=== PATIENT | male | born 1985 | race Caucasian/White ===

== ENCOUNTER 2018-06-29 18:58 | Emergency (ER) | payer OTHER ==
[~2018-06-29] VITALS: Ht 167.6 cm; Wt 52.0 kg
[2018-06-29 19:18] VITALS: Ht 167.6 cm; Wt 52.0 kg
--- NOTE | 2018-06-29 21:32 | ERD ---
ER Documentation Chief Complaint Chief Complaint dog bite right lwer leg today HPI This is a 32-year-old male who presents here to emerge department with complaints of right lower extremity dog bite that happened around 6 PM today. Stated is having the city of [place]. 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 Denies headache, head injury, loss of consciousness, dizziness, neck pain, neck stiffness, throat pain, difficulty swallowing, difficulty breathing lying flat, shoulder pain, chest pain, back pain, abdominal pain, nausea, vomiting, constipation, diarrhea, urinary symptoms, loss of bowel and bladder control, falls, difficulty walking due to pain, numbness or tingling sensation, calf pain, recent travel, recent major surgery in the last 3 weeks, calf pain, recent long travel, recent exposure to any illness, recent antibiotic use in the last 3 months, fever, chills, seizures. Past medical history: Denies. Surgical history: Denies. Social: Denies smoking, use of alcoholic beverages, use of illegal drugs. ROS All systems reviewed and are negative except as per history of present illness. Medications Home Meds Active Scripts Ibuprofen* (Motrin*) 600 Mg Tab, 600 MG PO Q6H PRN for PAIN AND OR ELEVATED TEMP, #30 TAB Prov:MARGY LENNON 06/29/18 Amoxicillin/Potassium Clav (Amox-Clav 875-125 mg Tablet) 875-125 mg Tab, 1 TAB PO BID for 10 Days, #20 TAB Prov:MARGY LENNON F 06/29/18 Allergies Allergies: Coded Allergies: No Known Allergy (Unverified , 06/29/18) PMhx/Soc Medical and Surgical Hx: pt denies Medical Hx, pt denies Surgical Hx Hx Alcohol Use: No Hx Substance Use: No Hx Tobacco Use: No Smoking Status: Never smoker Physical Exam Vitals Physical Exam Const: No acute distress Head: Atraumatic Eyes: Normal Conjunctiva. ENT: Normal External Ears, Nose and Mouth. Symmetrical face. Speaks full and clear sentences. Patent airway. Bilateral jaw: No rigidity. No tenderness. No discoloration. Good and full range of motion. No sardonic grin. Neck: Full range of motion. No meningismus. No nuchal rigidity. No signs of meningeal irritation. Resp: Clear to auscultation bilaterally Cardio: Regular rate and rhythm, no murmurs Abd: Soft, non tender, non distended. Normal bowel sounds Skin: No petechiae or rashes Back: No midline or flank tenderness Ext: No cyanosis, or edema. Right lower extremity: 1 puncture wound from the dog bite lateral area of the proximal tibia and fibula measuring approximately 0.2 cm. Right knee: Unremarkable. Has good range of motion of the right ankle. Right ankle: Unremarkable. Has good and full range of motion of the right ankle. Right pedal pulses within normal limits. Capillary refills to right lower extremity is less than 2 seconds. Bilateral hips are stable and unremarkable. Left lower extremity is unremarkable. No neurovascular deficits. Ambulatory with steady gait. Neur: Awake and alert. No neurological deficits. Psych: Normal Mood and Affect Results 24 hrs Current Medications Medications Dose Sig/Linda Start Time Status Last (Trade) Ordered Route PRN Stop Time Admin Dose Reason Admin Diphtheria/ 0.5 ml ONCE ONCE 06/29/18 DC 06/29/18 Tetanus/Acell IM* 22:00 21:45 Pertussis 06/29/18 22:01 (Adacel) 875 mg ONCE ONCE 06/29/18 DC 06/29/18 Amoxicillin/ PO 22:00 21:46 Clavulanate 06/29/18 22:01 Potassium (Augmentin) 1 tab ONCE ONCE 06/29/18 DC Acetaminophen PO 22:00 / 06/29/18 22:21 Hydrocodone Bitart ([place] (5/325)) Ketorolac 30 mg ONCE STAT 06/29/18 DC 06/29/18 Tromethamine IM 22:21 22:28 (Toradol) 06/29/18 22:22 Bacitracin 1 applic ONCE ONCE 06/29/18 DC 06/29/18 (Bacitracin TOP 23:00 22:46 Oint (Ud)) 06/29/18 23:00 Procedures/MDM Diagnostic tests: X-ray of the right knee: Normal x-rays right knee. No radiopaque foreign bodies noted. X-ray of the right tibia and fibula: Normal x-ray of the right tibia and fibula. No radiopaque foreign bodies noted. Treatment: Adacel IM. [place] was discontinued. Toradol IM. Wound cleaning. Augmentin. Dressing was applied by EMT. Re-evaluation: No active bleeding. No neurovascular deficits. Ambulatory with steady gait. Differential diagnosis I have low suspicion for open fracture, retained foreign body, displaced fracture, comminuted fracture, compartment syndrome, deep space infection, sepsis, tetanus. Final diagnosis: Dog bite. Prescription: Augmentin. Motrin. Follow-up with PCP in the next 24-48 hours. Come back here in the emergency department for any new symptoms or any worsening symptoms. All questions and concerns were answered. Patient and family members verbalized understanding and agreed with plan of care. Hemodynamically stable on discharge. Departure Diagnosis: Primary Impression: Bite wound Additional Impression: Dog bite Condition: Stable Additional Instructions: Follow-up with PCP in the next 24-48 hours. Come back here in the emergency department for any new symptoms or any worsening symptoms. MARGY LENNON June 29, 2018 21:32
[2018-06-29] MEDS ORDERED: DIPHTH/TET/ACEL PERTUSS (ADULT) 0.5 ML VIAL IM* ONE (22:00)
[2018-06-29] MEDS ORDERED: AMOXICILLIN/CLAV 875 MG TAB PO ONE (22:00)
[2018-06-29] MEDS ORDERED: HYDROCODONE/APAP (5/325) TAB PO ONE (22:00)
[2018-06-29] MEDS ORDERED: KETOROLAC 30 MG INJ IM STA (22:21)
[2018-06-29] MEDS ORDERED: AMOX1TAB10 PO (22:34)
[2018-06-29] MEDS ORDERED: IBUP-1542 PO (22:35)
[2018-06-29 22:58] VITALS: BP 110/60; PULSE 80; RESP 16
[2018-06-29] MEDS ORDERED: BACITRACIN 0.9 GM OINT TOP ONE (23:00)
== END 2018-06-29 22:56 | disposition home or self-care (01) ==
LOC: FTE 18:58
DX: S81.831A Puncture wound without foreign body, right lower leg, initial encounter (principal); W54.0XXA Bitten by dog, initial encounter; Y92.9 Unspecified place or not applicable; Z23 Encounter for immunization
CPT/HCPCS: 73562; 73590; 90471; 90715; 96372; J1885; Z7502; Z7610